=== PATIENT | male | born 1985 | race Caucasian/White ===

== ENCOUNTER 2020-02-26 14:25 | Emergency (ER) | payer MEDICAID ==
[~2020-02-26] VITALS: Ht 193 cm; Wt 104.0 kg
[2020-02-26 14:45] VITALS: BP 141/92
[2020-02-26] MEDS ORDERED: ondansetron 4mg rapidly disintigrating tab PO ONE (15:15)
[2020-02-26] MEDS ORDERED: ALBU6.7H9 INH (15:21)
[2020-02-26] MEDS ORDERED: ONDA4TAB6 PO (15:21)
[2020-02-26] MEDS: LORazepam 1 MG tablet PO ONE ×2 (15:32→15:54)
[2020-02-26] MEDS ORDERED: LORazepam 2 mg/ml vial IM STA (15:54)
--- NOTE | 2020-02-26 16:00 | NUR ---
Patient was given Zofran ODT 8mg. 5 minutes after med administration patient gagged multiple times then laid himself on the ground. C/O dizziness and abd pain. HR elevated to 145. Patient reported increased anxiety. Patient was instructed to take deep breathes in the nose and out the mouth. HR returned to normal after 10-15 minutes. Incident reported to cosmetic manager and PA. Patient agreeable to Ativan changed to 1mg IM. Injection given R Deltoid. VSS cont to be WNL
== END 2020-02-26 17:15 | disposition home or self-care (01) ==
LOC: ER 14:26
DX: R11.2 Nausea with vomiting, unspecified (principal); R06.02 Shortness of breath; R05 Cough; R50.9 Fever, unspecified; Z20.828 Contact with and (suspected) exposure to other viral communicable diseases; F41.9 Anxiety disorder, unspecified; F15.10 Other stimulant abuse, uncomplicated; Z88.5 Allergy status to narcotic agent; Z88.6 Allergy status to analgesic agent; Z88.8 Allergy status to other drugs, medicaments and biological substances; Z79.899 Other long term (current) drug therapy
CPT/HCPCS: 36415; 87635; 96372; 99283; J2060

== ENCOUNTER 2020-08-06 16:15 | Emergency (ER) | payer MEDICAID ==
[~2020-08-06 16:15] MED LIST: ALBU6.7H9 INH; ONDA4TAB6 PO
== END 2020-08-06 17:52 | disposition left against medical advice (07) ==
LOC: ER 16:16
DX: R51.9 Headache, unspecified (principal); Z53.21 Procedure and treatment not carried out due to patient leaving prior to being seen by health care provider

== ENCOUNTER 2020-10-24 18:23 | Emergency (ER) | payer MEDICAID ==
[~2020-10-24] VITALS: Ht 190.5 cm; Wt 79.5 kg
[2020-10-24 18:39] VITALS: BP 157/92
== END 2020-10-24 20:24 | disposition left against medical advice (07) ==
LOC: ER 18:24
DX: R51.9 Headache, unspecified (principal); R11.2 Nausea with vomiting, unspecified; R42 Dizziness and giddiness; R53.1 Weakness; Z88.5 Allergy status to narcotic agent; Z88.6 Allergy status to analgesic agent; Z88.8 Allergy status to other drugs, medicaments and biological substances; Z79.899 Other long term (current) drug therapy
CPT/HCPCS: 99281

== ENCOUNTER 2020-10-27 10:05 | Emergency (ER) | payer MEDICAID ==
[~2020-10-27] VITALS: Ht 193 cm; Wt 89.5 kg
[2020-10-27 10:09] VITALS: BP 138/83
[2020-10-27] MEDS ORDERED: metoclopramide 5 mg/ml inj IM ONE (14:00)
[2020-10-27] MEDS ORDERED: diphenhydrAMINE 25mg capsule PO ONE (14:00)
[2020-10-27] MEDS ORDERED: ketorolac trometh inj. 60 MG/2 ML VIAL IM ONE (14:00)
== END 2020-10-27 16:56 | disposition home or self-care (01) ==
LOC: ER 10:06
DX: G43.909 Migraine, unspecified, not intractable, without status migrainosus (principal); R11.2 Nausea with vomiting, unspecified; Z88.6 Allergy status to analgesic agent; Z88.8 Allergy status to other drugs, medicaments and biological substances; Z79.899 Other long term (current) drug therapy
CPT/HCPCS: 70450; 96372; 99284; J1885; J2765; Q0163

== ENCOUNTER 2021-10-29 10:17 | Emergency (ER) | payer MEDICAID ==
[~2021-10-29] VITALS: Ht 195.6 cm; Wt 95.5 kg
[~2021-10-29 10:17] MED LIST changes: +ALBU6.7H14 INH; -ALBU6.7H9 INH
[2021-10-29 11:02] VITALS: BP 122/82
[2021-10-29] MEDS ORDERED: ibuprofen tablet 400 MG TABLET PO ONE (11:10)
== END 2021-10-29 11:38 | disposition home or self-care (01) ==
LOC: ER 10:18
DX: M54.89 Other dorsalgia (principal); M54.2 Cervicalgia; H53.8 Other visual disturbances; G43.909 Migraine, unspecified, not intractable, without status migrainosus; F20.9 Schizophrenia, unspecified; Z88.5 Allergy status to narcotic agent; Z88.8 Allergy status to other drugs, medicaments and biological substances; Z88.6 Allergy status to analgesic agent; Z72.89 Other problems related to lifestyle; Z79.899 Other long term (current) drug therapy; W19.XXXA Unspecified fall, initial encounter; Y93.89 Activity, other specified; Y92.89 Other specified places as the place of occurrence of the external cause; Y99.8 Other external cause status
CPT/HCPCS: 99284

== ENCOUNTER 2023-08-10 14:17 | Outpatient (CLI) | payer MEDICAID ==
[2023-08-10] MEDS ORDERED: iohexol 300mg/ml 100ml inj. ONE (14:31)
== END 2023-08-10 23:59 | disposition home or self-care (01) ==
LOC: RAD 14:17
PROVIDERS: ATTEND Family Medicine
DX: I31.9 Disease of pericardium, unspecified (principal); R07.9 Chest pain, unspecified
CPT/HCPCS: 71260; Q9967

== ENCOUNTER 2024-02-15 05:49 | Day surgery (SDC) | payer MEDICAID ==
[2024-02-14 09:24] LABS: BASOPHILS # (AUTO) 0.1 X10'3 (0-0.2); BASOPHILS % (AUTO) 0.9 % (0-1); EOSINOPHILS # (AUTO) 0.2 X10'3 (0-0.9); EOSINOPHILS % (AUTO) 2.4 % (0-6); LYMPHOCYTES # (AUTO) 1.6 X10'3 (1.1-4.8); LYMPHOCYTES % (AUTO) 24.8 % (21-51); MEAN CORPUSCULAR HGB CONC 33.7 g/dL (33.0-36.5); MEAN CORPUSCULAR VOLUME 91.9 FL (78-98); MEAN PLATELET VOLUME 8.7 FL (7.4-10.4); MONOCYTES # (AUTO) 0.4 X10'3 (0-0.9); MONOCYTES % (AUTO) 6.8 % (2-12); NEUTROPHILS # (AUTO) 4.1 X10'3 (1.8-7.7); NEUTROPHILS % (AUTO) 65.1 % (42-75); PRE OP HEMATOCRIT 42.1 % (42.0-52.0); PRE OP HEMOGLOBIN 14.2 g/dL (14.0-17.9); PRE OP PLATELET COUNT 236 X10'3 (140-440); PRE OP WHITE BLOOD COUNT 6.3 10'3 (4.8-10.8); RED BLOOD COUNT 4.59 X10'6 (4.70-6.10)
[2024-02-14 09:34] LABS: ALBUMIN 3.9 G/DL (3.4-5.0); ALKALINE PHOSPHATASE 77 IU/L (46-116); BLOOD UREA NITROGEN 10 MG/DL (7-18); CALCIUM 9.6 MG/DL (8.5-10.1); CHLORIDE 103 MMOL/L (99-107); PRE OP ALT 36 U/L (30-65); PRE OP ANION GAP 9 (8-16); PRE OP AST 35 U/L (10-37); PRE OP BILIRUB, TOTAL 0.4 MG/DL (0.0-1.0); PRE OP GLUCOSE 109 MG/DL (70-104); PRE OP POTASSIUM 4.3 MMOL/L (3.4-5.1); PRE OP SODIUM 139 MMOL/L (135-145); TOTAL CARBON DIOXIDE 26.6 MMOL/L (24-32); TOTAL PROTEIN 7.8 G/DL (6.4-8.2); eGFR 83 ML/MIN
[2024-02-15] VITALS (10 sets, daily range): BP systolic 104–128; BP diastolic 55–74; PULSE 59–95; RESP 10–16; TEMP 97.4; O2SAT 98–99
[~2024-02-15] VITALS: Ht 195.6 cm; Wt 94.2 kg
[2024-02-15] MEDS: ceFAZolin 2gm in dextrose, iso 50 ML IV ONE (05:30)
[~2024-02-15 05:49] MED LIST changes: -ALBU6.7H14 INH; +APIX5TAB3 PO; +ASPI-1397 PO; +ATOR40TA72 PO; +BUPR1PAT TOP; +BUSP10TA4 PO; +DIVA500T9 PO; +DOCUMENT DATE & TIME OF BETA-BLOCKER PO ONE; +FLO0.4C PO; +LOSA25TA41 PO; +MELO-102 PO; +METO-395 PO; -ONDA4TAB6 PO; +PREG100C56 PO; +TIZA-189 PO; +TOPI50TA PO
[2024-02-15] MEDS: famotidine 20mg tablet PO ONE (06:33)
[2024-02-15] MEDS: ringers solution, lacted 1,000 ML IV SCH (06:33)
[2024-02-15] MEDS ORDERED: ketorolac trometh 30MG/ML vial 30 MG/ML VIAL ONE (06:43)
[2024-02-15] MEDS ORDERED: BUPIVAcaine 0.5% inj/PF 60 ML ONE (06:43)
[2024-02-15] MEDS ORDERED: LIDOcaine 1% (10mg/ml)w/preservative inj. 20ml MDV ONE (06:49)
[2024-02-15] MEDS ORDERED: LIDOcaine 1% w/EPI 1:100,000 inj. MDV 50 ML VIAL ONE (06:51)
[2024-02-15] MEDS ORDERED: sevoflurane 250ml liquid IH ONE (07:18)
[2024-02-15] MEDS ORDERED: fentaNYL/PF 50MCG/1 ML 2ML syringe ONE (07:19)
[2024-02-15] MEDS ORDERED: midazolam 1 mg/ML 2ml injection ONE (07:19)
[2024-02-15] MEDS ORDERED: dexamethasone sod phosphate 4mg/ml inj. ONE (08:10)
[2024-02-15] MEDS ORDERED: propofol inj 20 ML IV ONE (08:10)
[2024-02-15] MEDS ORDERED: ondansetron/PF 4mg/2ml inj ONE (08:10)
[2024-02-15] MEDS ORDERED: meperidine/PF 25mg/ml syringe IV PRN ×3 (08:30)
[2024-02-15] MEDS ORDERED: ringers solution, lacted 1,000 ML IV SCH (08:30)
[2024-02-15] MEDS ORDERED: ondansetron/PF 4mg/2ml inj IV PRN (08:30)
[2024-02-15] MEDS ORDERED: HYDROmorphone/PF 0.2 MG/ML SYRINGE IV PRN ×2 (08:30)
[2024-02-15] MEDS: ketorolac trometh 30MG/ML vial 30 MG/ML VIAL IV ONE (08:38)
[2024-02-15] MEDS: acetaminophen 1,000mg/100ml IV 100 ML IV ONE (08:39)
[2024-02-15] MEDS: HYDROcodone/acetaminophen 10/325mg tab PO ONE (09:22)
== END 2024-02-15 09:32 | disposition home or self-care (01) ==
LOC: PAS 05:49 → UNDOADMOB 08:38 → PAS IN 08:38
PROVIDERS: ATTEND Orthopaedic Surgery
DX: M22.41 Chondromalacia patellae, right knee (principal); M22.3X1 Other derangements of patella, right knee; Z79.899 Other long term (current) drug therapy; I10 Essential (primary) hypertension; F17.210 Nicotine dependence, cigarettes, uncomplicated; E78.5 Hyperlipidemia, unspecified; F41.9 Anxiety disorder, unspecified; F31.9 Bipolar disorder, unspecified; F20.9 Schizophrenia, unspecified; Z88.6 Allergy status to analgesic agent; Z88.8 Allergy status to other drugs, medicaments and biological substances
CPT/HCPCS: 29877; 36415; 80053; 82948; 85025; 93005; J0131; J0690; J1100; J1885; J2250; J2405; J2704; J3010; J3490; J7120; Z7506; Z7508; Z7512; A4215; A4618; A6449; A7000